=== PATIENT | male | born 1975 | race Caucasian/White ===

== ENCOUNTER 2017-09-17 11:16 | Emergency (ER) | payer MEDICAID ==
[~2017-09-17] VITALS: Ht 182.9 cm; Wt 99.8 kg
[~2017-09-17 11:16] MED LIST: INSU100C5 SQ
[2017-09-17 11:25] VITALS: BP_SYST 124
--- NOTE | 2017-09-17 11:32 | NUR ---
Pt placed in bed 7
--- NOTE | 2017-09-17 11:39 | NUR ---
Dr. Nagel at bedside for evaluation
--- NOTE | 2017-09-17 11:41 | NUR ---
Stepped into a hole at work yesterday, c/o left upper arm pain. No deformity, no swelling. Pain with adduction of arm. Scratch left upper thigh. No other injuries reported or observed at this time.
--- NOTE | 2017-09-17 11:53 | NUR ---
pt returned to unit amb from Radiology; in stable condition
--- NOTE | 2017-09-17 11:56 | NUR ---
reports 7/10 left upper arm pain; tolerable and does not wish for intervention at this time; will continue to monitor; Xray results pending
--- NOTE | 2017-09-17 12:30 | NUR ---
Shoulder sling was applied to left arm, pt tolerated it well.
[2017-09-17 13:18] VITALS: BP_SYST 120
--- NOTE | 2017-09-17 13:18 | NUR ---
Patient given written and verbal discharge instructions and verbalizes understanding. ER MD discussed with patient the results and treatment provided. Patient in stable condition. ID arm band removed. Rx of motrin given. Patient educated on pain management and to follow up with PMD. Pain Scale 2. Opportunity for questions provided and answered.
== END 2017-09-17 13:18 | disposition home or self-care (01) ==
LOC: SED 11:16
DX: S42.295A Other nondisplaced fracture of upper end of left humerus, initial encounter for closed fracture (principal); W17.2XXA Fall into hole, initial encounter; W01.0XXA Fall on same level from slipping, tripping and stumbling without subsequent striking against object, initial encounter; Y93.89 Activity, other specified; Y92.89 Other specified places as the place of occurrence of the external cause; Y99.0 Civilian activity done for income or pay
CPT/HCPCS: 73060; 73200; 99284; J7030

== ENCOUNTER 2019-08-12 17:05 | Inpatient (IN) | payer MEDICAID ==
[~2019-08-12] VITALS: Ht 182.9 cm; Wt 90.7 kg
[~2019-08-12 17:05] MED LIST changes: +ASPI-1153 PO; +GABA-531 PO; +LISI-600 PO; +NPH,100V11 SQ; +SIMV40TA2 PO; +SITA1TAB9 PO; +TRI48 PO
[2019-08-12] MEDS ORDERED: NACL 0.9% 1,000 ML IV SCH (19:26)
[2019-08-12] MEDS ORDERED: POTASSIUM CHLORIDE 20 MEQ TAB.PRT.SR PO ONE (22:25)
[2019-08-13] MEDS ORDERED: INSULIN REGULAR, HUMAN 100 UNITS in NS 99 ML IV PRN ×2 (08:00)
[2019-08-13] MEDS ORDERED: DEXTROSE 50% JECT 25 ML (1/2 AMP) IVP PRN (08:00)
[2019-08-13] MEDS ORDERED: DEXTROSE 50% JECT 50 ML (1 AMP) IVP PRN (08:00)
[2019-08-13] MEDS ORDERED: INSULIN GLARGINE 100 UNITS/ML 10 ML VIAL SUBCUT SCH (08:00)
[2019-08-13] MEDS: PIPERACILLIN/TAZOBACTAM 3.375 GM/ D5W 50 ML IV SCH ×4 (14:00→21:45)
[2019-08-13] MEDS: INSULIN REGULAR, HUMAN 100 UNITS/ML, 10 ML VIAL (humuLIN R) SUBCUT PRN (17:16)
[2019-08-13 19:14] LABS: CALCIUM 7.9 mg/dL (8.4-11.0); CREATININE 1.08 mg/dL (0.55-1.30); PHOSPHORUS 2.1 mg/dL (2.7-4.5); POTASSIUM 3.4 mmol/L (3.5-5.1)
[2019-08-13 20:45] VITALS: BP_SYST 123
[2019-08-14] MEDS: INSULIN REGULAR, HUMAN 100 UNITS/ML, 10 ML VIAL (humuLIN R) SUBCUT PRN ×3 (00:40→12:32)
[2019-08-14 00:42] VITALS: BP_SYST 115
[2019-08-14] MEDS: PIPERACILLIN/TAZOBACTAM 3.375 GM/ D5W 50 ML IV SCH ×2 (05:04)
[2019-08-14 08:00] VITALS: BP_SYST 131
[2019-08-14 09:18] LABS: BASOPHILS % (AUTO) 0.2 % (0.0-2.0); EOSINOPHILS # (AUTO) 0.1 K/uL (0.0-0.4); EOSINOPHILS % (AUTO) 0.8 % (0.0-4.0); HEMATOCRIT 38.9 % (36-54); HEMOGLOBIN 13.6 g/dL (14.0-18.0); LYMPHOCYTES # (AUTO) 2.4 K/uL (1.0-5.5); LYMPHOCYTES % (AUTO) 30.2 % (20.5-51.5); MEAN CORPUSCULAR HEMOGLOBIN 30 pg (27-31); MEAN CORPUSCULAR HGB CONC 35 % (32-36); MEAN CORPUSCULAR VOLUME 86 fL (79.0-98.0); MONOCYTES # (AUTO) 0.6 K/uL (0.0-1.0); MONOCYTES % (AUTO) 8.1 % (1.7-9.3); NEUTROPHILS # (AUTO) 4.8 K/uL (1.8-7.7); NEUTROPHILS % (AUTO) 60.7 % (40.0-70.0); PLATELET COUNT (AUTO) 178 K/uL (130-430); RED BLOOD CELL COUNT(AUTO) 4.54 MIL/uL (4.2-6.2); RED CELL DISTRIBUTION WIDTH 14.1 % (9.0-15.0); WHITE BLOOD COUNT (AUTO) 7.9 K/uL (4.8-10.8)
[2019-08-14 09:31] LABS: ALBUMIN 2.6 g/dL (3.4-4.8); CALCIUM 7.7 mg/dL (8.4-11.0); CREATININE 0.84 mg/dL (0.55-1.30); POTASSIUM 3.2 mmol/L (3.5-5.1); TOTAL BILIRUBIN 0.5 mg/dL (0.0-1.0)
[2019-08-14] MEDS ORDERED: POTASSIUM CHLORIDE 20 MEQ TAB.PRT.SR PO ONE (11:15)
[2019-08-14] MEDS ORDERED: NPH, HUMAN INSULIN ISOPHANE 100 UNITS/ ML 10 ML VIAL SQ SCH (11:30)
[2019-08-14 12:05] VITALS: BP_SYST 131
[2019-08-14] MEDS ORDERED: FLU VACC QS2019-20 36MOS UP/PF 60 MCG/0.5 ML SYRINGE I.M. PRN (12:15)
[2019-08-14] MEDS ORDERED: SIMVASTATIN 40 MG TABLET PO SCH (21:00)
[2019-08-14] MEDS ORDERED: GABAPENTIN 300 MG CAPSULE PO SCH (21:00)
[2019-08-15] MEDS ORDERED: FENOFIBRATE NANOCRYSTALLIZED 48 MG TABLET (TRICOR) PO SCH (09:00)
[2019-08-15] MEDS ORDERED: LISINOPRIL 20 MG TABLET PO SCH (09:00)
[2019-08-15] MEDS ORDERED: ASPIRIN 81 MG TABLET(ECOTRIN) PO SCH (09:00)
[2019-09-01 14:58] LABS: POTASSIUM 3.9 mmol/L (3.5-5.1)
[2019-09-01 14:59] LABS: CALCIUM 7.1 mg/dL (8.4-11.0); CREATININE 2.58 mg/dL (0.55-1.30)
[2019-09-01 15:00] LABS: CALCIUM 7.5 mg/dL (8.4-11.0); POTASSIUM 4.3 mmol/L (3.5-5.1)
[2019-09-01 15:01] LABS: CREATININE 2.28 mg/dL (0.55-1.30); PHOSPHORUS 2.3 mg/dL (2.7-4.5)
[2019-09-01 15:04] LABS: CALCIUM 7.8 mg/dL (8.4-11.0); CREATININE 2.03 mg/dL (0.55-1.30); PHOSPHORUS 2.7 mg/dL (2.7-4.5); POTASSIUM 4.4 mmol/L (3.5-5.1)
[2019-09-01 15:06] LABS: HEMOGLOBIN 16.6 g/dL (14.0-18.0); LYMPHOCYTES % (AUTO) 5.7 % (20.5-51.5); MEAN CORPUSCULAR HEMOGLOBIN 30 pg (27-31); MEAN CORPUSCULAR HGB CONC 35 % (32-36); MEAN CORPUSCULAR VOLUME 86 fL (79.0-98.0); NEUTROPHILS % (AUTO) 83.4 % (40.0-70.0); PLATELET COUNT (AUTO) 248 K/uL (130-430); RED BLOOD CELL COUNT(AUTO) 5.56 MIL/uL (4.2-6.2); RED CELL DISTRIBUTION WIDTH 14.1 % (9.0-15.0); WHITE BLOOD COUNT (AUTO) 10.9 K/uL (4.8-10.8)
[2019-09-01 15:07] LABS: BASOPHILS % (AUTO) 0.2 % (0.0-2.0); LYMPHOCYTES # (AUTO) 0.6 K/uL (1.0-5.5); MONOCYTES # (AUTO) 1.2 K/uL (0.0-1.0); MONOCYTES % (AUTO) 10.7 % (1.7-9.3); NEUTROPHILS # (AUTO) 9.1 K/uL (1.8-7.7)
[2019-09-01 15:32] LABS: BILIRUBIN,URINE 1+ (NEGATIVE); BLOOD, URINE 1+ (NEGATIVE); CLARITY/URINE CLEAR (CLEAR); COLOR,URINE YELLOW (YELLOW); GLUCOSE,URINE 3+ (NEGATIVE); KETONES,URINE 3+ (NEGATIVE); LEUKOCYTE ESTERASE ,URINE NEGATIVE (NEGATIVE); NITRITE, URINE NEGATIVE (NEGATIVE); PH,URINE 5.5 (5.0-8.0); PROTEIN URINE 1+ (NEGATIVE); UROBILINOGEN,URINE 0.2 (0.2-1.0)
[2019-09-01 15:34] LABS: RBC,URINE 0-3 /HPF (0-3)
[2019-09-01 15:35] LABS: BACTERIA,URINE FEW /HPF (None Seen); WBC,URINE 0-3 /HPF (0-3)
[2019-09-01 15:36] LABS: BARBITURATE, URINE NEGATIVE (NEG <=200); BENZODIAZEPINE, URINE NEGATIVE (NEG <=150); CANNABINOID, URINE NEGATIVE (NEG <=50); COCAINE, URINE NEGATIVE (NEG <=150); METHAMPHETAMINES SCREEN,URINE NEGATIVE (NEG <=500); OPIATE, URINE NEGATIVE (NEG <=100); PHENCYCLIDINE SCREEN,URINE NEGATIVE (NEG <=25); UR TRICYCLIC ANTIDEPRESSANTS NEGATIVE (NEG <=300); URINE AMPHETAMINE NEGATIVE (NEG <=500); URINE METHADONE NEGATIVE (NEG <=200); URINE OXYCODONE SCREEN NEGATIVE (NEG <=100); URINE PROPOXYPHENE SCREEN NEGATIVE (NEG <=300)
[2019-09-01 15:40] LABS: HEMATOCRIT 56.6 % (36-54); HEMOGLOBIN 18.7 g/dL (14.0-18.0); MEAN CORPUSCULAR HEMOGLOBIN 30 pg (27-31); MEAN CORPUSCULAR HGB CONC 33 % (32-36); MEAN CORPUSCULAR VOLUME 91 fL (79.0-98.0); RED BLOOD CELL COUNT(AUTO) 6.23 MIL/uL (4.2-6.2); RED CELL DISTRIBUTION WIDTH 13.8 % (9.0-15.0); WHITE BLOOD COUNT (AUTO) 19.1 K/uL (4.8-10.8)
[2019-09-01 15:41] LABS: BASOPHILS % (AUTO) 0.7 % (0.0-2.0); LYMPHOCYTES # (AUTO) 1.2 K/uL (1.0-5.5); LYMPHOCYTES % (AUTO) 6.4 % (20.5-51.5); MONOCYTES # (AUTO) 1.6 K/uL (0.0-1.0); MONOCYTES % (AUTO) 8.5 % (1.7-9.3); NEUTROPHILS # (AUTO) 16.1 K/uL (1.8-7.7); NEUTROPHILS % (AUTO) 84.4 % (40.0-70.0)
[2019-09-01 15:42] LABS: BASOPHILS # (AUTO) 0.1 K/uL (0.0-0.2); PLATELET COUNT (AUTO) 368 K/uL (130-430)
[2019-09-01 15:44] LABS: CHLORIDE 75 mmol/L (98-107); SODIUM SERUM 119 mmol/L (136-145)
[2019-09-01 15:45] LABS: ANION GAP 37 (5-15); GLUCOSE 725 mg/dL (70-99); UREA NITROGEN, BLOOD 48 mg/dL (8-21)
[2019-09-01 15:46] LABS: ACETONE, SERUM POSITIVE (NEGATIVE); ALANINE AMINOTRANSFERASE 39 U/L (12-78); ALBUMIN 3.8 g/dL (3.4-4.8); ASPARTATE AMINOTRANSFERASE 13 U/L (10-37); CREATININE 3.04 mg/dL (0.55-1.30); GFR AFRICAN AMERICAN 29 mL/min (>90); TOTAL BILIRUBIN 0.7 mg/dL (0.0-1.0)
== END 2019-08-14 13:10 | disposition home or self-care (01) | DRG 420 ==
LOC: SED 17:05 → SIC 19:33 → STU 08-13 20:00
PROVIDERS: ADMIT Internal Medicine; ATTEND Internal Medicine
DX: E11.10 Type 2 diabetes mellitus with ketoacidosis without coma (principal); E43 Unspecified severe protein-calorie malnutrition; F15.10 Other stimulant abuse, uncomplicated; F17.210 Nicotine dependence, cigarettes, uncomplicated; I10 Essential (primary) hypertension; Z79.4 Long term (current) use of insulin
CPT/HCPCS: 36415; 36600; 71045; 80048; 80053; 80307; 81000-TC; 82009-TC; 82803-TC; 83605; 83735-TC; 84100-TC; 84484; 85025; 85379; 87081; 93005; 96372; 96374; 96375; 99285; G0378; J1815; J2543; J7060

== ENCOUNTER 2019-09-14 14:46 | Emergency (ER) | payer MEDICAID ==
--- NOTE | 2019-09-14 14:49 | NUR ---
WHILE ATTEMPTING TO TRIAGE PT, PT BECAME VERY IRATE AND SCREAMING LOUDLY AT STAFF. CALLING ME A "FUCKING BITCH", "MOTHER SLY GET ME ICE CHIPS NOW". EXPLAINED TO PT THAT I WOULD TRIAGE HIM AND THEN TAKE HIM TO A ROOM WHERE HE CAN HAVE ICE CHIPS, PT AGGRESSIVE WITH STAFF, STANDING OVER ME. I EXCUSED MYSELF FROM TRIAGE ROOM AND CALLED SECURITY. PT PLACED IN WAITING ROOM WITH SECURITY AT CHAIR SIDE.
--- NOTE | 2019-09-14 15:13 | NUR ---
TO SECURITY PT DENIES SAYING ANYTHING TO ME, ESCORTED TO FRONT OF HOSPITAL AND PT CALLED 911, SECURITY STAYING WITH PT AT THIS TIME.
--- NOTE | 2019-09-14 15:15 | NUR ---
911 SHOWED UP AND TOOK PT TO ANOTHER HOSPITAL PER REQUEST.
== END 2019-09-14 15:15 | disposition left against medical advice (07) ==
LOC: SED 14:46
DX: R11.10 Vomiting, unspecified (principal); Z53.21 Procedure and treatment not carried out due to patient leaving prior to being seen by health care provider

== ENCOUNTER 2020-11-28 13:14 | Emergency (ER) | payer SELFPAY ==
[~2020-11-28] VITALS: Ht 182.9 cm; Wt 86.2 kg
[~2020-11-28 13:14] MED LIST changes: -ASPI-1153 PO; +ASPI-1393 PO; -LISI-600 PO; +LISI20TA30 PO
[2020-11-28 13:15] VITALS: BP_SYST 143
[2020-11-28 13:32] VITALS: BP_SYST 143
== END 2020-11-28 13:30 | disposition home or self-care (01) ==
LOC: SED 13:14
DX: Z02.89 Encounter for other administrative examinations (principal); I10 Essential (primary) hypertension; E11.9 Type 2 diabetes mellitus without complications; J45.909 Unspecified asthma, uncomplicated; E78.00 Pure hypercholesterolemia, unspecified; Z85.9 Personal history of malignant neoplasm, unspecified; Z79.899 Other long term (current) drug therapy; Z79.82 Long term (current) use of aspirin; Z79.4 Long term (current) use of insulin
CPT/HCPCS: 99283

== ENCOUNTER 2021-12-27 08:55 | Emergency (ER) | payer MEDICAID ==
[~2021-12-27] VITALS: Ht 177.8 cm; Wt 90.7 kg
[2021-12-27 09:00] VITALS: BP_SYST 124
--- NOTE | 2021-12-27 09:00 | NUR ---
Patient to ER bed H1 to gown for evaluation. Side rails up.
--- NOTE | 2021-12-27 09:05 | NUR ---
ER at bedside examining patient.
[2021-12-27] MEDS ORDERED: LISI20TA30 PO (09:47)
[2021-12-27] MEDS ORDERED: LANC1COM2 MC (09:47)
[2021-12-27] MEDS ORDERED: LIP40 PO (09:47)
[2021-12-27] MEDS ORDERED: [UNRECOGNIZED DRUG - CODE] TP (09:47)
[2021-12-27] MEDS ORDERED: ASPI-1393 PO (09:47)
[2021-12-27] MEDS ORDERED: [UNRECOGNIZED DRUG - CODE] MC (09:47)
[2021-12-27] MEDS ORDERED: [UNRECOGNIZED DRUG - CODE] MC (09:47)
[2021-12-27] MEDS ORDERED: INSU100V9 SQ (09:47)
[2021-12-27] MEDS ORDERED: INSU100V7 SUBCUT (09:47)
[2021-12-27 10:00] VITALS: BP_SYST 124
--- NOTE | 2021-12-27 10:00 | NUR ---
Patient given written and verbal discharge instructions and verbalizes understanding. ER MD discussed with patient the results and treatment provided. Patient in stable condition. ID arm band removed. Rx of LANTUS,HUMULIN R,LANCETS,STRIPS,LISINOPRIL,LIPITOR given. Patient educated on pain management and to follow up with PMD. Pain Scale 0. Opportunity for questions provided and answered. Medication side effect fact sheet provided.
--- NOTE | 2021-12-27 19:56 | NUR ---
Note undone in EDM - 12/27/21 at 2001 by DEIDRE Patient given written and verbal discharge instructions and verbalizes understanding. ER MD discussed with patient the results and treatment provided. Patient in stable condition. ID arm band removed. IV catheter removed intact and dressing applied, no active bleeding. Rx of ASA,GLUCOSE METER,HUMULIN R,LANTUS,BLOOD LANCETS,LIPTOR,LISINOPRIL given. Patient educated on pain management and to follow up with PMD. Pain Scale 0. Opportunity for questions provided and answered. Medication side effect fact sheet provided.
== END 2021-12-27 10:00 | disposition home or self-care (01) ==
LOC: SED 08:55
DX: E11.9 Type 2 diabetes mellitus without complications (principal); I10 Essential (primary) hypertension; J45.909 Unspecified asthma, uncomplicated; Z76.0 Encounter for issue of repeat prescription; Z79.4 Long term (current) use of insulin; Z79.899 Other long term (current) drug therapy
CPT/HCPCS: 99281

== ENCOUNTER 2024-04-07 18:19 | Inpatient (IN) | payer MEDICAID ==
[~2024-04-07] VITALS: Ht 182.9 cm; Wt 77.1 kg
[~2024-04-07 18:19] MED LIST changes: +INSU100V7 SUBCUT; +INSU100V9 SQ; +LANC1COM2 MC; +LIP40 PO; +SIMV-345 PO; -SIMV40TA2 PO; +[UNRECOGNIZED DRUG - CODE] MC; +[UNRECOGNIZED DRUG - CODE] MC; +[UNRECOGNIZED DRUG - CODE] TP
[2024-04-07 18:27] VITALS: BP_SYST 116; PULSE 118; RESP 22; TEMP 98.3; O2SAT 98
[2024-04-07] MEDS: INSULIN Lispro 100 UNITS/ML, 3 ML VIAL (humaLOG) IV ONE (18:51)
[2024-04-07] MEDS: NACL 0.9% 1,000 ML IV ONE ×2 (18:55→22:01)
[2024-04-07 19:17] LABS: BASOPHILS # (AUTO) 0.1 K/uL (0.0-0.2); BASOPHILS % (AUTO) 0.6 % (0.0-2.0); HEMATOCRIT 47.7 % (36-54); HEMOGLOBIN 16.5 g/dL (14.0-18.0); LYMPHOCYTES # (AUTO) 1.2 K/uL (1.0-5.5); LYMPHOCYTES % (AUTO) 11.5 % (20.5-51.5); MEAN CORPUSCULAR HEMOGLOBIN 30 pg (27-31); MEAN CORPUSCULAR HGB CONC 35 % (32-36); MEAN CORPUSCULAR VOLUME 86 fL (79.0-98.0); MONOCYTES # (AUTO) 0.3 K/uL (0.0-1.0); MONOCYTES % (AUTO) 2.5 % (1.7-9.3); NEUTROPHILS # (AUTO) 8.8 K/uL (1.8-7.7); NEUTROPHILS % (AUTO) 85.4 % (40.0-70.0); PLATELET COUNT (AUTO) 360 K/uL (130-430); RED BLOOD CELL COUNT(AUTO) 5.52 MIL/uL (4.2-6.2); WHITE BLOOD COUNT (AUTO) 10.3 K/uL (4.8-10.8)
[2024-04-07 19:42] LABS: ALANINE AMINOTRANSFERASE 27 U/L (12-78); ALBUMIN 3.2 g/dL (3.4-4.8); ANION GAP 17 (5-15); ASPARTATE AMINOTRANSFERASE 11 U/L (10-37); BILIRUBIN,DIRECT 0.1 mg/dL (0.0-0.3); CALCIUM 8.5 mg/dL (8.4-11.0); CARBON DIOXIDE 24 mmol/L (23-29); CHLORIDE 86 mmol/L (98-107); CREATININE 2.25 mg/dL (0.55-1.30); GFR AFRICAN AMERICAN 40 mL/min (>90); GFR NON AFRICAN-AMERICAN 33 mL/min (>90); GLUCOSE 375 mg/dL (74-106); POTASSIUM 3.8 mmol/L (3.5-5.1); SODIUM SERUM 127 mmol/L (136-145); TOTAL BILIRUBIN 0.7 mg/dL (0.0-1.0); TOTAL PROTEIN, SERUM 7.1 g/dL (6.4-8.3); UREA NITROGEN, BLOOD 88 mg/dL (8-21)
[2024-04-07 20:35] LABS: ACETONE, SERUM SMALL (NEGATIVE)
[2024-04-07 22:42] LABS: ABG O2 SAT% ESTIMATE 97.5 % (94.0-100.0); BLOOD GAS BASE EXCESS -3.4 mmol/L (-3.0-3.0); BLOOD GAS HCO3 19.1 mmol/L (21.0-27.0); BLOOD GAS PCO2 29.1 mmHg (32.0-45.0); BLOOD GAS PH 7.435 (7.350-7.450); BLOOD GAS PO2 94.3 mmHg (75.0-100.0)
[2024-04-07 22:43] LABS: ALLEN'S TEST POSITIVE (P)
[2024-04-07] MEDS ORDERED: PIOG30TA70 PO (22:58)
[2024-04-07] MEDS ORDERED: INSU100V9 SQ (22:58)
[2024-04-07] MEDS ORDERED: METF-833 PO (22:58)
[2024-04-07] MEDS ORDERED: DAPA10TA PO (22:58)
[2024-04-07] MEDS ORDERED: ONDANSETRON HCL 4 MG/2 ML VIAL IVP PRN (23:00)
[2024-04-07] MEDS ORDERED: DEXTROSE 50% JECT 50 ML DISP.SYRIN IVP PRN (23:00)
[2024-04-07] MEDS ORDERED: LORazepam 2 MG/ML VIAL IVP PRN (23:00)
[2024-04-07] MEDS ORDERED: ACETAMINOPHEN 325 MG TABLET PO PRN (23:00)
[2024-04-07] MEDS ORDERED: HYDROcodone/ACETAMIN 10-325 MG TAB PO PRN (23:00)
[2024-04-07] MEDS ORDERED: MORPHINE 2 MG/ML INJ. SYRINGE IVP PRN (23:00)
[2024-04-07] MEDS: INSULIN GLARGINE 100 UNITS/ML, 10 ML VIAL SUBCUT ONE (23:30)
[2024-04-08] VITALS (7 sets, daily range): BP systolic 115–132; PULSE 78–114; RESP 16–18; TEMP 96.9–98.1; O2SAT 95–100
[2024-04-08] MEDS ORDERED: ZOLPIDEM TARTRATE 5 MG TABLET PO PRN
[2024-04-08] MEDS ORDERED: cefTRIAXone 1 GM VIAL ONE (00:27)
[2024-04-08] MEDS: cefTRIAXone 1 GM in D5W 50 ML IV ONE (00:30)
[2024-04-08] MEDS: METOPROLOL TARTRATE 25 MG TABLET PO SCH (00:31)
[2024-04-08] MEDS: INSULIN Lispro 100 UNITS/ML, 3 ML VIAL (humaLOG) SUBCUT SCH ×2 (06:44→18:08)
[2024-04-08] MEDS: ASPIRIN 81 MG TABLET(ECOTRIN) PO SCH (08:26)
[2024-04-08] MEDS: GABAPENTIN 300 MG CAPSULE PO SCH (08:26)
[2024-04-08 08:31] LABS: HEMOGLOBIN A1C 11.65 % (<5.7)
[2024-04-08] MEDS: INSULIN GLARGINE 100 UNITS/ML, 10 ML VIAL SUBCUT SCH (08:33)
[2024-04-08] MEDS: HEPARIN SODIUM,PORCINE 5,000 UNITS/ML VIAL SUBCUT SCH (08:35)
[2024-04-08 08:41] LABS: BASOPHILS % (AUTO) 0.1 % (0.0-2.0); HEMATOCRIT 46.1 % (36-54); HEMOGLOBIN 15.7 g/dL (14.0-18.0); LYMPHOCYTES % (AUTO) 7.2 % (20.5-51.5); MEAN CORPUSCULAR HEMOGLOBIN 30 pg (27-31); MEAN CORPUSCULAR HGB CONC 34 % (32-36); MEAN CORPUSCULAR VOLUME 88 fL (79.0-98.0); MONOCYTES # (AUTO) 1.4 K/uL (0.0-1.0); MONOCYTES % (AUTO) 10.1 % (1.7-9.3); NEUTROPHILS # (AUTO) 11.5 K/uL (1.8-7.7); NEUTROPHILS % (AUTO) 82.6 % (40.0-70.0); PLATELET COUNT (AUTO) 395 K/uL (130-430); RED BLOOD CELL COUNT(AUTO) 5.26 MIL/uL (4.2-6.2); WHITE BLOOD COUNT (AUTO) 13.9 K/uL (4.8-10.8)
[2024-04-08 08:49] LABS: PROTHROMBIN TIME 10.1 SECS (9.5-12.5)
[2024-04-08 09:27] LABS: CALCIUM 8.5 mg/dL (8.4-11.0); CREATININE 1.59 mg/dL (0.55-1.30); POTASSIUM 3.5 mmol/L (3.5-5.1); THYROID STIMULATING HORMONE 0.89 uIu/mL (0.36-3.74)
[2024-04-08] MEDS: NACL 0.9% 1,000 ML IV SCH (10:38)
[2024-04-08] MEDS: INSULIN LISPRO SLIDING SCALE 100 UNITS/ML, 3 ML VIAL (humaLOG) SUBCUT PRN (11:29)
[2024-04-08] MEDS: cefTRIAXone 1 GM in D5W 50 ML IV SCH (13:13)
[2024-04-08] MEDS: PANTOPRAZOLE SODIUM 40 MG/VIAL (PROTONIX) IVP SCH (16:15)
[2024-04-08] MEDS: METOCLOPRAMIDE HCL 10 MG/2 ML VIAL IVP ONE (17:45)
[2024-04-08] MEDS: PANTOPRAZOLE SODIUM 40 MG/VIAL (PROTONIX) IVP ONE (17:45)
[2024-04-08 19:24] LABS: BILIRUBIN,URINE NEGATIVE (NEGATIVE); BLOOD, URINE NEGATIVE (NEGATIVE); CLARITY/URINE CLEAR (CLEAR); COLOR,URINE YELLOW (YELLOW); GLUCOSE,URINE 2+ (NEGATIVE); KETONES,URINE 1+ (NEGATIVE); LEUKOCYTE ESTERASE ,URINE NEGATIVE (NEGATIVE); NITRITE, URINE NEGATIVE (NEGATIVE); PROTEIN URINE TRACE (NEGATIVE); UROBILINOGEN,URINE 0.2 (0.2-1.0)
[2024-04-08 19:29] LABS: BACTERIA,URINE RARE /HPF (None Seen); MUCUS,URINE None Seen /LPF (None Seen); RBC,URINE NONE SEEN /HPF (0-3); WBC,URINE NONE SEEN /HPF (0-3)
[2024-04-08] MEDS: DOCUSATE SODIUM 100 MG CAPSULE PO SCH (20:38)
[2024-04-08] MEDS: ATORVASTATIN 20 MG TABLET PO SCH (20:38)
[2024-04-08] MEDS: METOCLOPRAMIDE HCL 10 MG/2 ML VIAL IVP SCH (22:00)
[2024-04-09] VITALS: BP_SYST 136; PULSE 78; RESP 18; TEMP 98.1; O2SAT 95
[2024-04-09 05:48] LABS: BASOPHILS % (AUTO) 0.1 % (0.0-2.0); HEMATOCRIT 41.2 % (36-54); LYMPHOCYTES # (AUTO) 0.9 K/uL (1.0-5.5); LYMPHOCYTES % (AUTO) 10.5 % (20.5-51.5); MEAN CORPUSCULAR HEMOGLOBIN 30 pg (27-31); MEAN CORPUSCULAR HGB CONC 34 % (32-36); MEAN CORPUSCULAR VOLUME 88 fL (79.0-98.0); MONOCYTES # (AUTO) 1.4 K/uL (0.0-1.0); MONOCYTES % (AUTO) 16.1 % (1.7-9.3); NEUTROPHILS # (AUTO) 6.5 K/uL (1.8-7.7); NEUTROPHILS % (AUTO) 73.3 % (40.0-70.0); PLATELET COUNT (AUTO) 294 K/uL (130-430); WHITE BLOOD COUNT (AUTO) 8.8 K/uL (4.8-10.8)
[2024-04-09 06:17] LABS: CALCIUM 7.9 mg/dL (8.4-11.0); CREATININE 0.94 mg/dL (0.55-1.30); THYROID STIMULATING HORMONE 1.13 uIu/mL (0.36-3.74)
[2024-04-09 07:50] VITALS: BP_SYST 133; PULSE 120; RESP 18; TEMP 98.2; O2SAT 97
[2024-04-09 12:40] VITALS: BP_SYST 113; PULSE 91; RESP 16; TEMP 98.9; O2SAT 100
[2024-04-09] MEDS: EMPAGLIFLOZIN 10 MG TABLET PO ONE (15:59)
[2024-04-09 16:44] VITALS: BP_SYST 116; PULSE 100; RESP 18; TEMP 99.5; O2SAT 100
[2024-04-09 20:00] VITALS: BP_SYST 100; PULSE 109; RESP 18; TEMP 98.5; O2SAT 99
[2024-04-09] MEDS: METOPROLOL TARTRATE 25 MG TABLET PO SCH (21:00)
[2024-04-09 22:00] VITALS: O2SAT 96
[2024-04-09] MEDS: INSULIN GLARGINE 100 UNITS/ML, 10 ML VIAL SUBCUT SCH (22:27)
[2024-04-10 00:05] VITALS: BP_SYST 117; PULSE 105; RESP 16; TEMP 97.4; O2SAT 96
[2024-04-10 08:03] VITALS: BP_SYST 114; PULSE 100; RESP 16; TEMP 97.5; O2SAT 98
[2024-04-10] MEDS: EMPAGLIFLOZIN 10 MG TABLET PO SCH (09:43)
== END 2024-04-10 10:00 | disposition left against medical advice (07) | DRG 720 ==
LOC: SED 18:19 → STU 22:00
PROVIDERS: ADMIT Internal Medicine; ATTEND Internal Medicine
DX: A41.9 Sepsis, unspecified organism (principal); N17.0 Acute kidney failure with tubular necrosis; E11.22 Type 2 diabetes mellitus with diabetic chronic kidney disease; E87.1 Hypo-osmolality and hyponatremia; E86.0 Dehydration; E11.65 Type 2 diabetes mellitus with hyperglycemia; I12.9 Hypertensive chronic kidney disease with stage 1 through stage 4 chronic kidney disease, or unspecified chronic kidney disease; E78.5 Hyperlipidemia, unspecified; N18.30 Chronic kidney disease, stage 3 unspecified; Z79.4 Long term (current) use of insulin; Z79.84 Long term (current) use of oral hypoglycemic drugs; Z79.82 Long term (current) use of aspirin; Z79.899 Other long term (current) drug therapy; Z86.73 Personal history of transient ischemic attack (TIA), and cerebral infarction without residual deficits; Z91.148 Patient's other noncompliance with medication regimen for other reason
CPT/HCPCS: 36415; 36600; 76705; 76770; 80048; 80061; 80076; 81000; 81001; 81015; 82009; 82803; 82948; 83037; 83690; 83735; 84443; 85025; 85610; 87040; 93005; 93306; 96375; 97116-GP; 97163-GP; 97530-GP; 99285; G0378; J0696; J1644; J1815; J2470; J2765; J7060

== ENCOUNTER 2024-04-17 07:34 | Inpatient (IN) | payer MEDICAID ==
[~2024-04-17] VITALS: Ht 165.1 cm; Wt 74.6 kg
[2024-04-17] VITALS (22 sets, daily range): BP systolic 93–133; PULSE 105–119; RESP 22–37; TEMP 97–99.1; O2SAT 96–100
[~2024-04-17 07:34] MED LIST changes: +DAPA10TA PO; +METF-833 PO; +PIOG30TA70 PO; -SITA1TAB9 PO
[2024-04-17 07:50] LABS: ABG O2 SAT% ESTIMATE 97.7 % (94.0-100.0); BLOOD GAS BASE EXCESS -23.4 mmol/L (-3.0-3.0); BLOOD GAS PO2 124.1 mmHg (75.0-100.0)
[2024-04-17 07:53] LABS: BLOOD GAS HCO3 2.9 mmol/L (21.0-27.0); BLOOD GAS PCO2 8.5 mmHg (32.0-45.0); BLOOD GAS PH 7.157 (7.350-7.450)
[2024-04-17 07:54] LABS: ALLEN'S TEST POSITIVE (P)
[2024-04-17] MEDS: NACL 0.9% 1,000 ML IV ONE (07:55)
[2024-04-17 08:28] LABS: BASOPHILS # (AUTO) 0.1 K/uL (0.0-0.2); BASOPHILS % (AUTO) 0.5 % (0.0-2.0); EOSINOPHILS # (AUTO) 0.1 K/uL (0.0-0.4); EOSINOPHILS % (AUTO) 0.2 % (0.0-4.0); HEMATOCRIT 30.3 % (36-54); HEMOGLOBIN 9.6 g/dL (14.0-18.0); LYMPHOCYTES # (AUTO) 2.1 K/uL (1.0-5.5); LYMPHOCYTES % (AUTO) 9.5 % (20.5-51.5); MEAN CORPUSCULAR HEMOGLOBIN 30 pg (27-31); MEAN CORPUSCULAR HGB CONC 32 % (32-36); MEAN CORPUSCULAR VOLUME 94 fL (79.0-98.0); MONOCYTES # (AUTO) 0.9 K/uL (0.0-1.0); MONOCYTES % (AUTO) 4.2 % (1.7-9.3); NEUTROPHILS # (AUTO) 18.9 K/uL (1.8-7.7); PLATELET COUNT (AUTO) 697 K/uL (130-430); RED BLOOD CELL COUNT(AUTO) 3.22 MIL/uL (4.2-6.2); RED CELL DISTRIBUTION WIDTH 14.5 % (9.0-15.0); WHITE BLOOD COUNT (AUTO) 22.1 K/uL (4.8-10.8)
[2024-04-17 08:48] LABS: ALANINE AMINOTRANSFERASE 17 U/L (12-78); ALBUMIN 2.9 g/dL (3.4-4.8); ANION GAP 30 (5-15); ASPARTATE AMINOTRANSFERASE 11 U/L (10-37); BILIRUBIN,DIRECT 0.1 mg/dL (0.0-0.3); CALCIUM 8.7 mg/dL (8.4-11.0); CHLORIDE 95 mmol/L (98-107); CREATININE 1.36 mg/dL (0.55-1.30); GFR AFRICAN AMERICAN 72 mL/min (>90); POTASSIUM 4.6 mmol/L (3.5-5.1); SODIUM SERUM 132 mmol/L (136-145); TOTAL BILIRUBIN 0.5 mg/dL (0.0-1.0); TOTAL PROTEIN, SERUM 6.5 g/dL (6.4-8.3); UREA NITROGEN, BLOOD 27 mg/dL (8-21)
[2024-04-17] MEDS: SUCCINYLCHOLINE CHLORIDE 20 MG/ML(QUELICIN) IVP ONE (08:50)
[2024-04-17] MEDS: ETOMIDATE 20 MG/ 10 ML VIAL (AMIDATE) IVP ONE (08:50)
[2024-04-17] MEDS ORDERED: ETOMIDATE 20 MG/ 10 ML VIAL (AMIDATE) ONE (08:53)
[2024-04-17] MEDS ORDERED: SUCCINYLCHOLINE CHLORIDE 20 MG/ML(QUELICIN) ONE (08:53)
[2024-04-17 09:01] LABS: GFR NON AFRICAN-AMERICAN 59 mL/min (>90)
[2024-04-17 09:02] LABS: CARBON DIOXIDE 7 mmol/L (23-29); GLUCOSE 411 mg/dL (74-106)
[2024-04-17 09:17] LABS: ACETONE, SERUM POSITIVE (NEGATIVE)
[2024-04-17] MEDS ORDERED: PROPOFOL DRIP 100 ML IV ONE (09:17)
[2024-04-17] MEDS ORDERED: MIDAZOLAM HCL 5 MG/ML VIAL (VERSED) IV ONE ×3 (09:18→10:36)
[2024-04-17] MEDS ORDERED: ONDANSETRON HCL 4 MG/2 ML VIAL IVP PRN (09:30)
[2024-04-17] MEDS ORDERED: POTASSIUM CHLORIDE 30 MEQ in NS 250 ML IV PRN (09:45)
[2024-04-17] MEDS ORDERED: POTASSIUM CHLORIDE 40 MEQ in NS 250 ML IV PRN (09:45)
[2024-04-17] MEDS ORDERED: MAGNESIUM SULFATE 50 ML IV PRN (09:45)
[2024-04-17] MEDS ORDERED: DEXTROSE 50% JECT 50 ML DISP.SYRIN IVP PRN (09:45)
[2024-04-17] MEDS: MIDAZOLAM HCL 5 MG/5 ML VIAL IVP ONE ×2 (09:45→11:39)
[2024-04-17 10:05] LABS: BASOPHILS # (AUTO) 0.1 K/uL (0.0-0.2); BASOPHILS % (AUTO) 0.4 % (0.0-2.0); EOSINOPHILS # (AUTO) 0.1 K/uL (0.0-0.4); EOSINOPHILS % (AUTO) 0.2 % (0.0-4.0); HEMOGLOBIN 8.3 g/dL (14.0-18.0); LYMPHOCYTES % (AUTO) 10.5 % (20.5-51.5); MEAN CORPUSCULAR HEMOGLOBIN 30 pg (27-31); MEAN CORPUSCULAR HGB CONC 31 % (32-36); MEAN CORPUSCULAR VOLUME 97 fL (79.0-98.0); MONOCYTES # (AUTO) 0.9 K/uL (0.0-1.0); MONOCYTES % (AUTO) 3.2 % (1.7-9.3); NEUTROPHILS # (AUTO) 24.5 K/uL (1.8-7.7); NEUTROPHILS % (AUTO) 85.7 % (40.0-70.0); PLATELET COUNT (AUTO) 646 K/uL (130-430); RED CELL DISTRIBUTION WIDTH 14.3 % (9.0-15.0); WHITE BLOOD COUNT (AUTO) 28.6 K/uL (4.8-10.8)
[2024-04-17 10:06] LABS: NEUTROPHILS % (AUTO) 85.6 % (40.0-70.0)
[2024-04-17] MEDS: NACL 0.9% 1,000 ML IV SCH ×2 (11:00→11:37)
[2024-04-17 11:20] LABS: ALANINE AMINOTRANSFERASE 14 U/L (12-78); ALBUMIN 2.5 g/dL (3.4-4.8); ANION GAP 30 (5-15); ASPARTATE AMINOTRANSFERASE 11 U/L (10-37); CALCIUM 7.9 mg/dL (8.4-11.0); CHLORIDE 98 mmol/L (98-107); CREATININE 1.61 mg/dL (0.55-1.30); GFR AFRICAN AMERICAN 59 mL/min (>90); PHOSPHORUS 5.8 mg/dL (2.7-4.5); POTASSIUM 4.5 mmol/L (3.5-5.1); SODIUM SERUM 134 mmol/L (136-145); TOTAL BILIRUBIN 0.4 mg/dL (0.0-1.0); TOTAL PROTEIN, SERUM 5.7 g/dL (6.4-8.3); UREA NITROGEN, BLOOD 30 mg/dL (8-21)
[2024-04-17] MEDS: MIDAZOLAM IN NACL,ISO-OSMOT/PF 100 ML IV PRN (11:25)
[2024-04-17] MEDS: NOREPINEPHRINE BITARTRATE 4 MG in D5W 246 ML IV PRN (11:29)
[2024-04-17 11:32] LABS: ACETONE, SERUM POSITIVE (NEGATIVE)
[2024-04-17 11:34] LABS: CARBON DIOXIDE 6 mmol/L (23-29); GLUCOSE 459 mg/dL (74-106)
[2024-04-17] MEDS: INSULIN REGULAR, HUMAN 100 UNITS in NS 99 ML IV PRN (11:34)
[2024-04-17] MEDS: INSULIN REGULAR, HUMAN 100 UNITS in NS 99 ML IV ONE (12:01)
[2024-04-17 12:13] LABS: BILIRUBIN,URINE 1+ (NEGATIVE); BLOOD, URINE NEGATIVE (NEGATIVE); CLARITY/URINE CLEAR (CLEAR); COLOR,URINE YELLOW (YELLOW); GLUCOSE,URINE 3+ (NEGATIVE); KETONES,URINE 3+ (NEGATIVE); LEUKOCYTE ESTERASE ,URINE NEGATIVE (NEGATIVE); NITRITE, URINE NEGATIVE (NEGATIVE); PH,URINE 5.5 (5.0-8.0); PROTEIN URINE TRACE (NEGATIVE); UROBILINOGEN,URINE 0.2 (0.2-1.0)
[2024-04-17] MEDS: PROPOFOL DRIP 100 ML IV ONE (12:41)
[2024-04-17] MEDS: SODIUM BICARBONATE 8.4% JECT 50 MEQ/50 ML SYRINGE ONE (12:49)
[2024-04-17] MEDS: SODIUM BICARBONATE 8.4% JECT 50 MEQ/50 ML SYRINGE IVP ONE (13:07)
[2024-04-17 13:29] LABS: BARBITURATE, URINE NEGATIVE (NEG <=200); BENZODIAZEPINE, URINE NEGATIVE (NEG <=150); CANNABINOID, URINE POSITIVE (NEG <=50); COCAINE, URINE NEGATIVE (NEG <=150); METHAMPHETAMINES SCREEN,URINE POSITIVE (NEG <=500); OPIATE, URINE NEGATIVE (NEG <=100); PHENCYCLIDINE SCREEN,URINE NEGATIVE (NEG <=25); UR TRICYCLIC ANTIDEPRESSANTS NEGATIVE (NEG <=300); URINE AMPHETAMINE POSITIVE (NEG <=500); URINE METHADONE NEGATIVE (NEG <=200); URINE OXYCODONE SCREEN NEGATIVE (NEG <=100)
[2024-04-17] MEDS ORDERED: HEPARIN SODIUM,PORCINE 5,000 UNITS/ML VIAL SUBCUT SCH (14:00)
[2024-04-17] MEDS: PIPERACILLIN/TAZO 3.375 GM in D5W 50 ML IV SCH (14:07)
[2024-04-17] MEDS: VANCOMYCIN HCL 1,500 MG in NS 250 ML IV SCH (15:00)
[2024-04-17] MEDS: NOREPINEPHRINE 4 MG/4 ML VIAL IV ONE ×2 (15:40→15:47)
[2024-04-17] MEDS: SODIUM BICARBONATE 8.4% VIAL 50 MEQ/50 ML VIAL INJ ONE (15:47)
[2024-04-17 16:26] LABS: HEMOGLOBIN 7.5 g/dL (14.0-18.0); MEAN CORPUSCULAR HEMOGLOBIN 30 pg (27-31); MEAN CORPUSCULAR HGB CONC 33 % (32-36); MEAN CORPUSCULAR VOLUME 92 fL (79.0-98.0); PLATELET COUNT (AUTO) 548 K/uL (130-430); RED CELL DISTRIBUTION WIDTH 13.9 % (9.0-15.0)
[2024-04-17 16:28] LABS: CALCIUM 7.9 mg/dL (8.4-11.0); CREATININE 1.73 mg/dL (0.55-1.30); POTASSIUM 4.3 mmol/L (3.5-5.1)
[2024-04-17 16:33] LABS: WHITE BLOOD COUNT (AUTO) 36.4 K/uL (4.8-10.8)
[2024-04-17] MEDS ORDERED: SODIUM BICARBONATE 8.4% JECT 50 MEQ/50 ML SYRINGE IVP ONE (16:40)
[2024-04-17 17:18] LABS: ABG O2 SAT% ESTIMATE 99.3 % (94.0-100.0); BLOOD GAS BASE EXCESS -16.4 mmol/L (-3.0-3.0); BLOOD GAS PH 7.312 (7.350-7.450); BLOOD GAS PO2 199.8 mmHg (75.0-100.0)
[2024-04-17 17:23] LABS: BLOOD GAS HCO3 8.1 mmol/L (21.0-27.0); BLOOD GAS PCO2 16.4 mmHg (32.0-45.0)
[2024-04-17] MEDS: PROPOFOL DRIP 100 ML IV PRN (19:51)
[2024-04-17 20:43] LABS: CALCIUM 7.6 mg/dL (8.4-11.0); CREATININE 1.71 mg/dL (0.55-1.30)
[2024-04-17] MEDS: NOREPINEPHRINE BITARTRATE 8 MG in NS 242 ML IV PRN (20:44)
[2024-04-17] MEDS: FENTANYL CITRATE-0.9 % NACL/PF 100 ML IV PRN (21:52)
[2024-04-18] VITALS (73 sets, daily range): BP systolic 76–144; PULSE 95–125; RESP 22–38; TEMP 97.7–100.3; O2SAT 94–100
[2024-04-18 01:06] LABS: CALCIUM 7.6 mg/dL (8.4-11.0); CREATININE 1.76 mg/dL (0.55-1.30); POTASSIUM 4.2 mmol/L (3.5-5.1)
[2024-04-18 04:37] LABS: BASOPHILS % (AUTO) 0.1 % (0.0-2.0); HEMATOCRIT 24.4 % (36-54); HEMOGLOBIN 8.3 g/dL (14.0-18.0); LYMPHOCYTES # (AUTO) 1.2 K/uL (1.0-5.5); LYMPHOCYTES % (AUTO) 5.6 % (20.5-51.5); MEAN CORPUSCULAR HEMOGLOBIN 31 pg (27-31); MEAN CORPUSCULAR HGB CONC 34 % (32-36); MEAN CORPUSCULAR VOLUME 90 fL (79.0-98.0); MONOCYTES # (AUTO) 1.2 K/uL (0.0-1.0); MONOCYTES % (AUTO) 5.3 % (1.7-9.3); NEUTROPHILS # (AUTO) 19.3 K/uL (1.8-7.7); PLATELET COUNT (AUTO) 562 K/uL (130-430); RED BLOOD CELL COUNT(AUTO) 2.69 MIL/uL (4.2-6.2); RED CELL DISTRIBUTION WIDTH 14.4 % (9.0-15.0); WHITE BLOOD COUNT (AUTO) 21.7 K/uL (4.8-10.8)
[2024-04-18 04:41] LABS: CREATININE 1.71 mg/dL (0.55-1.30); POTASSIUM 4.2 mmol/L (3.5-5.1)
[2024-04-18 08:55] LABS: CALCIUM 7.2 mg/dL (8.4-11.0); CREATININE 1.59 mg/dL (0.55-1.30); POTASSIUM 3.9 mmol/L (3.5-5.1)
[2024-04-18] MEDS: PANTOPRAZOLE SODIUM 40 MG/VIAL (PROTONIX) IVP SCH (09:32)
[2024-04-18 12:33] LABS: CREATININE 1.51 mg/dL (0.55-1.30); POTASSIUM 3.7 mmol/L (3.5-5.1)
[2024-04-18 17:14] LABS: CALCIUM 7.5 mg/dL (8.4-11.0); CREATININE 1.5 mg/dL (0.55-1.30); POTASSIUM 3.8 mmol/L (3.5-5.1)
[2024-04-18 20:36] LABS: CALCIUM 7.5 mg/dL (8.4-11.0); CREATININE 1.39 mg/dL (0.55-1.30); POTASSIUM 3.5 mmol/L (3.5-5.1)
[2024-04-19] VITALS (35 sets, daily range): BP systolic 87–155; PULSE 57–103; RESP 15–31; TEMP 98.5–99.1; O2SAT 100
[2024-04-19 02:21] LABS: CALCIUM 7.9 mg/dL (8.4-11.0); CREATININE 1.38 mg/dL (0.55-1.30); POTASSIUM 3.5 mmol/L (3.5-5.1)
[2024-04-19 06:44] LABS: CALCIUM 7.5 mg/dL (8.4-11.0); CREATININE 1.32 mg/dL (0.55-1.30); POTASSIUM 3.4 mmol/L (3.5-5.1)
[2024-04-19] MEDS ORDERED: 0.45% NACL 1,000 ML IV SCH (08:45)
[2024-04-19] MEDS ORDERED: HEPARIN SODIUM,PORCINE 5,000 UNITS/ML VIAL SUBCUT SCH (09:00)
[2024-04-19 09:10] LABS: MEAN CORPUSCULAR HEMOGLOBIN 31 pg (27-31); MEAN CORPUSCULAR HGB CONC 34 % (32-36); MEAN CORPUSCULAR VOLUME 91 fL (79.0-98.0); PLATELET COUNT (AUTO) 238 K/uL (130-430); WHITE BLOOD COUNT (AUTO) 8.7 K/uL (4.8-10.8)
[2024-04-19 09:12] LABS: HEMOGLOBIN 5.5 g/dL (14.0-18.0)
[2024-04-19 09:13] LABS: HEMATOCRIT 16.3 % (36-54)
[2024-04-19] MEDS ORDERED: INSULIN LISPRO SLIDING SCALE 100 UNITS/ML, 3 ML VIAL (humaLOG) SUBCUT PRN (09:15)
[2024-04-19] MEDS: D5/0.45 NS 1,000 ML IV SCH (09:26)
[2024-04-19] MEDS ORDERED: DEXMEDETOMIDINE HCL 200 MCG in NS 50 ML IV PRN (09:45)
[2024-04-19] MEDS ORDERED: INSULIN GLARGINE 100 UNITS/ML, 10 ML VIAL SUBCUT SCH (10:00)
[2024-04-19 10:23] LABS: CALCIUM 7.6 mg/dL (8.4-11.0); CREATININE 1.25 mg/dL (0.55-1.30); POTASSIUM 3.3 mmol/L (3.5-5.1)
[2024-04-19 14:21] LABS: CALCIUM 7.6 mg/dL (8.4-11.0); CREATININE 1.28 mg/dL (0.55-1.30); POTASSIUM 3.5 mmol/L (3.5-5.1)
[2024-04-19 18:36] LABS: CALCIUM 7.5 mg/dL (8.4-11.0); CREATININE 1.21 mg/dL (0.55-1.30); POTASSIUM 3.1 mmol/L (3.5-5.1)
[2024-04-19] MEDS: QUEtiapine FUMARATE 25 MG TABLET NG SCH (21:16)
[2024-04-19] MEDS: 0.45% NACL 1,000 ML IV SCH (21:38)
[2024-04-19 22:34] LABS: CALCIUM 7.7 mg/dL (8.4-11.0)
[2024-04-19 22:35] LABS: CREATININE 1.17 mg/dL (0.55-1.30)
[2024-04-19 23:21] LABS: BASOPHILS % (AUTO) 0.5 % (0.0-2.0); EOSINOPHILS % (AUTO) 0.3 % (0.0-4.0); LYMPHOCYTES # (AUTO) 1.5 K/uL (1.0-5.5); LYMPHOCYTES % (AUTO) 19.4 % (20.5-51.5); MEAN CORPUSCULAR HEMOGLOBIN 32 pg (27-31); MEAN CORPUSCULAR HGB CONC 34 % (32-36); MEAN CORPUSCULAR VOLUME 92 fL (79.0-98.0); MONOCYTES # (AUTO) 0.5 K/uL (0.0-1.0); MONOCYTES % (AUTO) 6.3 % (1.7-9.3); NEUTROPHILS # (AUTO) 5.8 K/uL (1.8-7.7); NEUTROPHILS % (AUTO) 73.5 % (40.0-70.0); PLATELET COUNT (AUTO) 167 K/uL (130-430); RED BLOOD CELL COUNT(AUTO) 2.28 MIL/uL (4.2-6.2); RED CELL DISTRIBUTION WIDTH 15.3 % (9.0-15.0); WHITE BLOOD COUNT (AUTO) 7.8 K/uL (4.8-10.8)
[2024-04-19] MEDS: KCL 20 mEq in 100 mL (PREMIX) 100 ML IV PRN (23:31)
[2024-04-19] MEDS: KCL 40 mEq in 100 mL (PREMIX) 0 ML IV ONE (23:49)
[2024-04-20] VITALS (38 sets, daily range): BP systolic 92–132; PULSE 59–80; RESP 11–33; TEMP 98.5–99.9; O2SAT 97–100
[2024-04-20 00:05] LABS: HEMOGLOBIN 7.2 g/dL (14.0-18.0)
[2024-04-20] MEDS: LORazepam 2 MG/ML VIAL IVP PRN (01:11)
[2024-04-20] MEDS: KCL 20 mEq in 100 mL (PREMIX) 100 ML IV ONE (02:04)
[2024-04-20 05:00] LABS: BASOPHILS # (AUTO) 0.1 K/uL (0.0-0.2); BASOPHILS % (AUTO) 0.7 % (0.0-2.0); EOSINOPHILS % (AUTO) 0.5 % (0.0-4.0); HEMOGLOBIN 7.5 g/dL (14.0-18.0); LYMPHOCYTES # (AUTO) 1.6 K/uL (1.0-5.5); LYMPHOCYTES % (AUTO) 20.7 % (20.5-51.5); MEAN CORPUSCULAR HEMOGLOBIN 31 pg (27-31); MEAN CORPUSCULAR HGB CONC 34 % (32-36); MEAN CORPUSCULAR VOLUME 92 fL (79.0-98.0); MONOCYTES # (AUTO) 0.4 K/uL (0.0-1.0); MONOCYTES % (AUTO) 5.9 % (1.7-9.3); NEUTROPHILS # (AUTO) 5.4 K/uL (1.8-7.7); NEUTROPHILS % (AUTO) 72.2 % (40.0-70.0); PLATELET COUNT (AUTO) 176 K/uL (130-430); RED BLOOD CELL COUNT(AUTO) 2.39 MIL/uL (4.2-6.2); WHITE BLOOD COUNT (AUTO) 7.5 K/uL (4.8-10.8)
[2024-04-20 05:38] LABS: CALCIUM 7.8 mg/dL (8.4-11.0); CREATININE 1.17 mg/dL (0.55-1.30); POTASSIUM 3.4 mmol/L (3.5-5.1)
[2024-04-20 06:16] LABS: ALBUMIN 1.6 g/dL (3.4-4.8); CALCIUM 7.6 mg/dL (8.4-11.0); CREATININE 1.17 mg/dL (0.55-1.30); POTASSIUM 3.3 mmol/L (3.5-5.1); TOTAL BILIRUBIN 0.4 mg/dL (0.0-1.0); TOTAL PROTEIN, SERUM 4.7 g/dL (6.4-8.3)
[2024-04-20] MEDS: INSULIN GLARGINE 100 UNITS/ML, 10 ML VIAL SUBCUT ONE (09:47)
[2024-04-20] MEDS ORDERED: INSULIN LISPRO SLIDING SCALE 100 UNITS/ML, 3 ML VIAL (humaLOG) SUBCUT PRN (11:45)
[2024-04-20] MEDS: POTASSIUM CHLORIDE 20 MEQ/PKT PACKET NG ONE (13:11)
[2024-04-20] MEDS: ALBUMIN HUMAN 25% 50 ML IV ONE (13:11)
[2024-04-20] MEDS: INSULIN Lispro 100 UNITS/ML, 3 ML VIAL (humaLOG) SUBCUT ONE (13:14)
[2024-04-20] MEDS ORDERED: HALOPERIDOL LACTATE 5 MG/ML VIAL IM PRN (13:15)
[2024-04-20] MEDS: INSULIN Lispro 100 UNITS/ML, 3 ML VIAL (humaLOG) SUBCUT SCH (18:09)
[2024-04-20] MEDS: INSULIN LISPRO SLIDING SCALE 100 UNITS/ML, 3 ML VIAL (humaLOG) SUBCUT PRN (18:18)
[2024-04-20] MEDS: INSULIN GLARGINE 100 UNITS/ML, 10 ML VIAL SUBCUT SCH (20:22)
[2024-04-20] MEDS ORDERED: INSULIN GLARGINE 100 UNITS/ML, 10 ML VIAL SUBCUT SCH (21:00)
[2024-04-21] VITALS (34 sets, daily range): BP systolic 95–134; PULSE 70–78; RESP 16–31; TEMP 98.1–98.8; O2SAT 99–100
[2024-04-21 04:51] LABS: BASOPHILS % (AUTO) 0.4 % (0.0-2.0); EOSINOPHILS # (AUTO) 0.1 K/uL (0.0-0.4); EOSINOPHILS % (AUTO) 1.2 % (0.0-4.0); HEMOGLOBIN 7.3 g/dL (14.0-18.0); LYMPHOCYTES # (AUTO) 1.4 K/uL (1.0-5.5); LYMPHOCYTES % (AUTO) 27.1 % (20.5-51.5); MEAN CORPUSCULAR HEMOGLOBIN 31 pg (27-31); MEAN CORPUSCULAR HGB CONC 34 % (32-36); MEAN CORPUSCULAR VOLUME 91 fL (79.0-98.0); MONOCYTES # (AUTO) 0.3 K/uL (0.0-1.0); MONOCYTES % (AUTO) 5.8 % (1.7-9.3); NEUTROPHILS # (AUTO) 3.4 K/uL (1.8-7.7); NEUTROPHILS % (AUTO) 65.5 % (40.0-70.0); PLATELET COUNT (AUTO) 171 K/uL (130-430); RED BLOOD CELL COUNT(AUTO) 2.36 MIL/uL (4.2-6.2); RED CELL DISTRIBUTION WIDTH 15.3 % (9.0-15.0); WHITE BLOOD COUNT (AUTO) 5.1 K/uL (4.8-10.8)
[2024-04-21 05:45] LABS: CALCIUM 7.4 mg/dL (8.4-11.0); POTASSIUM 3.1 mmol/L (3.5-5.1)
[2024-04-21 08:50] LABS: HEMATOCRIT 21.5 % (36-54)
[2024-04-21] MEDS: FUROSEMIDE 20 MG/2 ML VIAL IVP ONE (09:22)
[2024-04-21] MEDS: POTASSIUM CHLORIDE 20 MEQ/PKT PACKET NG ONE (09:42)
[2024-04-21] MEDS: KCL 20 mEq in 100 mL (PREMIX) 100 ML IV SCH (12:57)
[2024-04-22] VITALS (30 sets, daily range): BP systolic 98–153; PULSE 69–109; RESP 12–24; TEMP 98.4–99.1; O2SAT 95–100
[2024-04-22 05:32] LABS: BASOPHILS % (AUTO) 0.5 % (0.0-2.0); EOSINOPHILS # (AUTO) 0.1 K/uL (0.0-0.4); EOSINOPHILS % (AUTO) 2.1 % (0.0-4.0); HEMATOCRIT 23.3 % (36-54); HEMOGLOBIN 7.8 g/dL (14.0-18.0); LYMPHOCYTES # (AUTO) 1.3 K/uL (1.0-5.5); LYMPHOCYTES % (AUTO) 28.5 % (20.5-51.5); MEAN CORPUSCULAR HEMOGLOBIN 31 pg (27-31); MEAN CORPUSCULAR HGB CONC 34 % (32-36); MEAN CORPUSCULAR VOLUME 93 fL (79.0-98.0); MONOCYTES # (AUTO) 0.5 K/uL (0.0-1.0); MONOCYTES % (AUTO) 10.9 % (1.7-9.3); NEUTROPHILS # (AUTO) 2.7 K/uL (1.8-7.7); PLATELET COUNT (AUTO) 146 K/uL (130-430); RED CELL DISTRIBUTION WIDTH 15.6 % (9.0-15.0); WHITE BLOOD COUNT (AUTO) 4.7 K/uL (4.8-10.8)
[2024-04-22 05:57] LABS: CALCIUM 7.8 mg/dL (8.4-11.0); CREATININE 0.91 mg/dL (0.55-1.30); POTASSIUM 3.6 mmol/L (3.5-5.1)
[2024-04-22 09:50] LABS: ABG O2 SAT% ESTIMATE 99.4 % (94.0-100.0); BLOOD GAS BASE EXCESS 1.4 mmol/L (-3.0-3.0); BLOOD GAS HCO3 21.4 mmol/L (21.0-27.0); BLOOD GAS PO2 152.4 mmHg (75.0-100.0)
[2024-04-22 10:04] LABS: ALLEN'S TEST POSITIVE (P); BLOOD GAS PCO2 19.5 mmHg (32.0-45.0); BLOOD GAS PH 7.658 (7.350-7.450)
[2024-04-22 13:49] LABS: BASOPHILS % (AUTO) 0.7 % (0.0-2.0); EOSINOPHILS % (AUTO) 0.8 % (0.0-4.0); HEMATOCRIT 24.7 % (36-54); HEMOGLOBIN 7.9 g/dL (14.0-18.0); LYMPHOCYTES # (AUTO) 0.9 K/uL (1.0-5.5); LYMPHOCYTES % (AUTO) 18.5 % (20.5-51.5); MEAN CORPUSCULAR HEMOGLOBIN 31 pg (27-31); MEAN CORPUSCULAR HGB CONC 32 % (32-36); MEAN CORPUSCULAR VOLUME 96 fL (79.0-98.0); MONOCYTES # (AUTO) 0.5 K/uL (0.0-1.0); MONOCYTES % (AUTO) 11.3 % (1.7-9.3); NEUTROPHILS # (AUTO) 3.3 K/uL (1.8-7.7); NEUTROPHILS % (AUTO) 68.7 % (40.0-70.0); PLATELET COUNT (AUTO) 164 K/uL (130-430); RED BLOOD CELL COUNT(AUTO) 2.57 MIL/uL (4.2-6.2); RED CELL DISTRIBUTION WIDTH 15.6 % (9.0-15.0); WHITE BLOOD COUNT (AUTO) 4.7 K/uL (4.8-10.8)
[2024-04-22] MEDS: 0.45% NACL 1,000 ML IV SCH (14:12)
[2024-04-22] MEDS: PANTOPRAZOLE SODIUM 40 MG/VIAL (PROTONIX) IVP SCH (18:09)
[2024-04-22] MEDS: QUEtiapine FUMARATE 25 MG TABLET PO SCH (21:28)
[2024-04-22] MEDS: INSULIN LISPRO SLIDING SCALE 100 UNITS/ML, 3 ML VIAL (humaLOG) SUBCUT PRN (21:31)
[2024-04-23] VITALS (25 sets, daily range): BP systolic 105–144; PULSE 73–102; RESP 13–24; TEMP 98–99.8; O2SAT 97–100
[2024-04-23 07:48] LABS: PROTHROMBIN TIME 10.6 SECS (9.5-12.5)
[2024-04-23 08:16] LABS: BASOPHILS % (AUTO) 0.6 % (0.0-2.0); EOSINOPHILS # (AUTO) 0.1 K/uL (0.0-0.4); EOSINOPHILS % (AUTO) 3.6 % (0.0-4.0); HEMOGLOBIN 8.7 g/dL (14.0-18.0); LYMPHOCYTES # (AUTO) 1.2 K/uL (1.0-5.5); LYMPHOCYTES % (AUTO) 30.2 % (20.5-51.5); MEAN CORPUSCULAR HEMOGLOBIN 31 pg (27-31); MEAN CORPUSCULAR HGB CONC 33 % (32-36); MONOCYTES # (AUTO) 0.5 K/uL (0.0-1.0); MONOCYTES % (AUTO) 12.9 % (1.7-9.3); NEUTROPHILS # (AUTO) 2.2 K/uL (1.8-7.7); NEUTROPHILS % (AUTO) 52.7 % (40.0-70.0); PLATELET COUNT (AUTO) 201 K/uL (130-430); RED CELL DISTRIBUTION WIDTH 15.1 % (9.0-15.0); WHITE BLOOD COUNT (AUTO) 4.1 K/uL (4.8-10.8)
[2024-04-23 08:17] LABS: MEAN CORPUSCULAR VOLUME 93 fL (79.0-98.0)
[2024-04-23 08:20] LABS: CALCIUM 7.9 mg/dL (8.4-11.0); CREATININE 0.81 mg/dL (0.55-1.30); POTASSIUM 3.2 mmol/L (3.5-5.1)
[2024-04-23] MEDS: INSULIN GLARGINE 100 UNITS/ML, 10 ML VIAL SUBCUT SCH (09:00)
[2024-04-23] MEDS: KCL 40 mEq in 100 mL (PREMIX) 100 ML IV ONE (11:13)
[2024-04-23] MEDS: fentaNYL CITRATE/PF 100 MCG/2 ML AMP ONE (13:44)
[2024-04-23] MEDS: MEPERIDINE 100 MG INJ. 100 MG/ML VIAL ONE (13:45)
[2024-04-23] MEDS: MIDAZOLAM HCL 5 MG/5 ML VIAL ONE ×2 (13:45)
[2024-04-23] MEDS: DIPHENHYDRAMINE INJ 50 MG/ML VIAL ONE (14:23)
[2024-04-24] VITALS (14 sets, daily range): BP systolic 109–138; PULSE 87–105; RESP 14–27; TEMP 98.1–98.9; O2SAT 95–100
[2024-04-24 09:22] LABS: EOSINOPHILS # (AUTO) 0.1 K/uL (0.0-0.4); EOSINOPHILS % (AUTO) 3.6 % (0.0-4.0); HEMATOCRIT 24.9 % (36-54); HEMOGLOBIN 8.3 g/dL (14.0-18.0); LYMPHOCYTES % (AUTO) 26.9 % (20.5-51.5); MEAN CORPUSCULAR HEMOGLOBIN 31 pg (27-31); MEAN CORPUSCULAR HGB CONC 34 % (32-36); MONOCYTES # (AUTO) 0.6 K/uL (0.0-1.0); MONOCYTES % (AUTO) 15.5 % (1.7-9.3); PLATELET COUNT (AUTO) 312 K/uL (130-430); RED BLOOD CELL COUNT(AUTO) 2.72 MIL/uL (4.2-6.2); RED CELL DISTRIBUTION WIDTH 15.1 % (9.0-15.0); WHITE BLOOD COUNT (AUTO) 3.8 K/uL (4.8-10.8)
[2024-04-24 09:23] LABS: MEAN CORPUSCULAR VOLUME 91 fL (79.0-98.0)
[2024-04-24 09:42] LABS: CALCIUM 7.8 mg/dL (8.4-11.0); CREATININE 0.81 mg/dL (0.55-1.30); POTASSIUM 3.7 mmol/L (3.5-5.1)
[2024-04-24] MEDS: INSULIN GLARGINE 100 UNITS/ML, 10 ML VIAL SUBCUT SCH (21:41)
[2024-04-25] VITALS: BP_SYST 140; PULSE 96; RESP 16; TEMP 98.2; O2SAT 98
[2024-04-25 04:00] VITALS: BP_SYST 116; PULSE 98; RESP 18; O2SAT 94
[2024-04-25 06:20] LABS: BASOPHILS % (AUTO) 0.8 % (0.0-2.0); EOSINOPHILS # (AUTO) 0.1 K/uL (0.0-0.4); EOSINOPHILS % (AUTO) 2.7 % (0.0-4.0); HEMATOCRIT 22.1 % (36-54); HEMOGLOBIN 7.6 g/dL (14.0-18.0); LYMPHOCYTES # (AUTO) 1.2 K/uL (1.0-5.5); LYMPHOCYTES % (AUTO) 35.6 % (20.5-51.5); MEAN CORPUSCULAR HEMOGLOBIN 31 pg (27-31); MEAN CORPUSCULAR HGB CONC 34 % (32-36); MEAN CORPUSCULAR VOLUME 91 fL (79.0-98.0); MONOCYTES # (AUTO) 0.6 K/uL (0.0-1.0); MONOCYTES % (AUTO) 17.5 % (1.7-9.3); NEUTROPHILS # (AUTO) 1.5 K/uL (1.8-7.7); NEUTROPHILS % (AUTO) 43.4 % (40.0-70.0); PLATELET COUNT (AUTO) 338 K/uL (130-430); RED BLOOD CELL COUNT(AUTO) 2.44 MIL/uL (4.2-6.2); RED CELL DISTRIBUTION WIDTH 14.3 % (9.0-15.0); WHITE BLOOD COUNT (AUTO) 3.4 K/uL (4.8-10.8)
[2024-04-25 06:58] LABS: ALBUMIN 1.6 g/dL (3.4-4.8); CALCIUM 7.7 mg/dL (8.4-11.0); CREATININE 0.76 mg/dL (0.55-1.30); POTASSIUM 3.3 mmol/L (3.5-5.1); TOTAL BILIRUBIN 0.2 mg/dL (0.0-1.0); TOTAL PROTEIN, SERUM 5.2 g/dL (6.4-8.3)
== END 2024-04-25 10:25 | disposition left against medical advice (07) | DRG 720 ==
LOC: SED 07:34 → SIC 09:28
PROVIDERS: ADMIT Internal Medicine; ATTEND Internal Medicine
PROC: 5A1955Z Respiratory Ventilation, Greater than 96 Consecutive Hours (ICD-10-PCS; 2024-04-17)
PROC: 0BH17EZ Insertion of Endotracheal Airway into Trachea, Via Natural or Artificial Opening (ICD-10-PCS; 2024-04-17)
PROC: 02HV33Z Insertion of Infusion Device into Superior Vena Cava, Percutaneous Approach (ICD-10-PCS; 2024-04-17)
PROC: B548ZZA Ultrasonography of Superior Vena Cava, Guidance (ICD-10-PCS; 2024-04-17)
PROC: 30233N1 Transfusion of Nonautologous Red Blood Cells into Peripheral Vein, Percutaneous Approach (ICD-10-PCS; 2024-04-18)
PROC: 0DB68ZX Excision of Stomach, Via Natural or Artificial Opening Endoscopic, Diagnostic (ICD-10-PCS; 2024-04-23)
PROC: 0DB58ZX Excision of Esophagus, Via Natural or Artificial Opening Endoscopic, Diagnostic (ICD-10-PCS; 2024-04-23)
PROC: 0DB98ZX Excision of Duodenum, Via Natural or Artificial Opening Endoscopic, Diagnostic (ICD-10-PCS; principal; 2024-04-23 14:00)
DX: A41.9 Sepsis, unspecified organism (principal); J96.01 Acute respiratory failure with hypoxia; R65.21 Severe sepsis with septic shock; E11.10 Type 2 diabetes mellitus with ketoacidosis without coma; J15.69 Pneumonia due to other Gram-negative bacteria; K26.4 Chronic or unspecified duodenal ulcer with hemorrhage; N17.9 Acute kidney failure, unspecified; E86.1 Hypovolemia; D62 Acute posthemorrhagic anemia; D75.839 Thrombocytosis, unspecified; I10 Essential (primary) hypertension; E78.5 Hyperlipidemia, unspecified; Z53.29 Procedure and treatment not carried out because of patient's decision for other reasons; E87.1 Hypo-osmolality and hyponatremia; E03.9 Hypothyroidism, unspecified; Z79.899 Other long term (current) drug therapy; Z88.8 Allergy status to other drugs, medicaments and biological substances; Z91.199 Patient's noncompliance with other medical treatment and regimen due to unspecified reason; E66.9 Obesity, unspecified; F15.10 Other stimulant abuse, uncomplicated
CPT/HCPCS: 36415; 36600; 43235; 71045; 80048; 80053; 80076; 80307; 81001; 81003; 82009; 82272; 82803; 82948; 83051; 83605; 83735; 84100; 84484; 85014; 85025; 85048; 85049; 85610; 85730; 86886; 86900; 86901; 86920; 87040; 87070; 87081; 87086; 87186; 87205; 88305; 88312; 88313; 92610-GN; 93005; 94002; 94003; 94070; 94640; 99291; J0330; J1200; J1815; J1940; J2060; J2175; J2250; J2470; J2543; J2704; J3010; J3370; J3480; J3490; J7050; J7060; P9021; P9046